=== PATIENT | female | born 1990 | race Caucasian/White ===

== ENCOUNTER 2017-01-25 17:37 | Emergency (ER) | payer OTHER ==
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
[2017-01-25 20:44] VITALS: BP 118/67
--- NOTE | 2017-01-26 07:46 | Diag Imaging Result Document ---
PROCEDURE NAME: HEAD/C-SPINE W/O CONTRAST - 01/25/2017 CT HEAD WITHOUT CONTRAST: A dose-reduction protocol was used. COMPARISON: No comparison exam. FINDINGS: There is no evidence of intracranial hemorrhage, mass effect, midline shift, or hydrocephalus. There is no evidence of infarct, although acute infarcts may not be immediately visible. There was no skull fracture. There is a 1 cm mucous retention cyst noted at the superior left maxillary sinus. IMPRESSION: No evidence of intracranial injury. CT CERVICAL SPINE WITHOUT CONTRAST: Axial and reformatted sagittal and coronal images are obtained. A dose-reduction protocol was used. COMPARISON: No comparison exam. 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 This is smoothly corticated consistent with congenital variant or anomaly. There is no fracture identified. There is no subluxation seen. There is no precervical soft tissue swelling identified. There is reversal of the normal lordosis, which may be positional or may relate to muscle spasm. IMPRESSION: No evidence of fracture or subluxation. The on-call radiologist provided preliminary results at 8:01 p.m. on 01/26/2016.
== END 2017-01-25 21:32 | disposition home or self-care (01) ==
LOC: ED 17:37
DX: S13.4XXA Sprain of ligaments of cervical spine, initial encounter (principal); R51 Headache; V43.52XA Car driver injured in collision with other type car in traffic accident, initial encounter
CPT/HCPCS: 70450; 72125